=== PATIENT | female | born 1975 | race Caucasian/White ===

== ENCOUNTER → 2016-06-04 | Outpatient (CLI) | payer BC | END | disposition home or self-care (01) | LOC: US 16:50 | DX: N92.0 Excessive and frequent menstruation with regular cycle (principal) ==

== ENCOUNTER → 2017-05-22 | Outpatient (CLI) | payer BC | END | disposition home or self-care (01) | LOC: US 10:15 | DX: N85.9 Noninflammatory disorder of uterus, unspecified (principal); D25.0 Submucous leiomyoma of uterus; N84.1 Polyp of cervix uteri ==

== ENCOUNTER → 2019-09-19 | Outpatient (CLI) | payer BC | END | disposition home or self-care (01) | LOC: US 15:58 | DX: D25.9 Leiomyoma of uterus, unspecified (principal); N92.0 Excessive and frequent menstruation with regular cycle ==

== ENCOUNTER → 2019-10-11 | Outpatient (CLI) | payer BC | LOC: MAMMO 15:49 | DX: Z12.31 Encounter for screening mammogram for malignant neoplasm of breast (principal) ==